=== PATIENT | male | born 1990 | race African-American/Black ===

== ENCOUNTER 2017-03-14 13:56 | Emergency (ER) | payer MEDICAID ==
[2017-03-14] MEDS ORDERED: Benzocaine 20% Topical Spray UD MUCMEM ONE (14:53)
[2017-03-14] MEDS ORDERED: Lidocaine 2% Viscous Solution 15 ML Cup PO ONE (14:53)
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
[2017-03-14 15:21] VITALS: BP 160/81
== END 2017-03-14 15:20 | disposition home or self-care (01) ==
LOC: MW.ED 13:56
DX: K04.7 Periapical abscess without sinus (principal); K02.9 Dental caries, unspecified; F17.210 Nicotine dependence, cigarettes, uncomplicated; Z88.5 Allergy status to narcotic agent
CPT/HCPCS: 99282; A9270

== ENCOUNTER 2019-02-18 23:15 | Emergency (ER) | payer MEDICAID ==
[2019-02-18 23:33] VITALS: BP 145/98; PULSE 84
[2019-02-18] MEDS ORDERED: Bacitracin Oint 1 GM U/D Packet TOP ONE (23:36)
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
== END 2019-02-19 00:05 | disposition home or self-care (01) ==
LOC: MW.ED 23:15
DX: L03.012 Cellulitis of left finger (principal); F17.210 Nicotine dependence, cigarettes, uncomplicated
CPT/HCPCS: 10060; 99283; J2001

== ENCOUNTER 2019-11-25 23:21 | Emergency (ER) | payer SELFPAY ==
[2019-11-25 23:57] VITALS: BP 142/94; PULSE 82
[2019-11-26] MEDS ORDERED: Sodium Chloride 0.9% 2.5 ML Syringe FLUSH PRN (00:34)
[2019-11-26] MEDS ORDERED: Sodium Chloride 0.9% 10 ML Syringe FLUSH PRN (00:34)
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
[2019-11-26] MEDS ORDERED: Amoxicillin/Clavulanate K 875-125 MG Tab PO ONE (00:58)
[2019-11-26] MEDS ORDERED: Sulfamethoxazole/Trimethoprim 800-160 MG Tab PO ONE (00:58)
== END 2019-11-26 01:14 | disposition left against medical advice (07) ==
LOC: MW.ED 23:21
DX: L03.213 Periorbital cellulitis (principal); Z88.5 Allergy status to narcotic agent
CPT/HCPCS: 99283; A9270; 99282